=== PATIENT | female | born 1985 | race Caucasian/White ===

== ENCOUNTER 2016-08-13 12:47 | Emergency (ER) | payer OTHER ==
[2016-08-13 13:39] VITALS: BP 114/79
--- NOTE | 2016-08-13 14:26 | UC ---
UC Dental HPI - HPI Summary HPI Summary: HAD HAD A TOOTH FRACTURED AT GUM LINE X MONTHS NOW WITH FACIAL SWELLING NO PAIN NO FEVER - History of Current Complaint Chief Complaint: UCGeneralIllness Stated Complaint: FACIAL SWELLING/ORAL Time Seen by Provider: 08/13/16 14:16 Hx Obtained From: Patient Hx Last Menstrual Period: Pt has the IUD Onset/Duration: Gradual Onset, Lasting Days Severity: Moderate Pain Intensity: 0 Pain Scale Used: 0-10 Numeric - Allergies/Home Medications Allergies/Adverse Reactions: Allergies Allergy/AdvReac Type Severity Reaction Status Date / Time No Known Allergies Allergy Verified 04/28/16 13:15 Home Medications: Home Medications Alprazolam [Xanax] 0.5 mg PO BID PRN 08/13/16 [History Confirmed 08/13/16] Imipramine HCl [Tofranil] 75 mg PO DAILY 08/13/16 [History Confirmed 08/13/16] PMH/Surg Hx/FS Hx/Imm Hx Previously Healthy: Yes Endocrine History Of: Denies: Diabetes, Thyroid Disease Cardiovascular History Of: Denies: Cardiac Disorders, Hypertension Respiratory History Of: Reports: Bronchitis - MOST MARTINEZ, MILD CASE Denies: COPD, Asthma GI/ History Of: Denies: Ulcer - Surgical History Surgical History: Yes Surgery Procedure, Year, and Place: 2009 cholecystectomy. cervical dysplasia, had LEEP - Family History Known Family History: Positive: Hypertension, Other - sister has Positive FMH of UTI - Social History Alcohol Use: Rare Alcohol Amount: 1x week Substance Use Type: None Smoking Status (MU): Current Some Day Smoker Type: Cigarettes Amount Used/How Often: "Couple per day" Length of Time of Smoking/Using Tobacco: 1 YEAR Have You Smoked in the Last Year: No When Did the Patient Quit Smoking/Using Tobacco: 12/2013 - Immunization History Most Recent Influenza Vaccination: none Review of Systems Constitutional: Negative Skin: Negative Eyes: Negative ENT: Negative Respiratory: Negative Cardiovascular: Negative Gastrointestinal: Negative Genitourinary: Negative Motor: Negative Neurovascular: Negative Musculoskeletal: Negative Neurological: Negative Psychological: Negative All Other Systems Reviewed And Are Negative: Yes Physical Exam Triage Information Reviewed: Yes Appearance: Well-Appearing, No Pain Distress, Well-Nourished Vital Signs: Initial Vital Signs Temp 98 F 08/13/16 13:32 Pulse 112 08/13/16 13:32 Resp 16 08/13/16 13:32 BP 114/79 08/13/16 13:32 Pulse Ox 100 08/13/16 13:32 Eyes: Positive: Conjunctiva Clear ENT: Positive: Hearing grossly normal, Pharynx normal, TMs normal. Negative: Pharyngeal erythema, Nasal congestion, Nasal drainage, Tonsillar exudate, Trismus, Muffled/hoarse voice Dental: Positive: Gross Decay/Caries @, Dental Fracture @ Neck: Positive: Supple, Nontender Respiratory: Positive: Lungs clear, Normal breath sounds, No respiratory distress Cardiovascular: Positive: RRR, No Murmur Musculoskeletal: Positive: ROM Intact, No Edema Neurological: Positive: Alert, Muscle Tone Normal Psychological Exam: Normal Dental Complaint Course/Dx - Differential Dx/Diagnosis Provider Diagnoses: DENTAL INFECTION Discharge - Discharge Plan Condition: Stable Disposition: HOME Prescriptions: Ibuprofen TAB* [Motrin TAB*] 600 mg PO QID PRN #40 tab PRN Reason: Pain Penicillin VK TAB 500 MG(NF) [Penicillin VK 500 mg Tab(NF)] 500 mg PO QID #28 tab Patient Education Materials: Toothache (ED) Referrals: Ruslan Santana MD [Primary Care Provider] - Additional Instructions: RECHECK FOR NEW OR WORSENING SYMPTOMS SEE DENTIST IN 1-2 WEEKS PLANNED Images Head: 1 - SWOLLEN Dental: 1 - FX/GUM SWOLLEN
== END 2016-08-13 14:38 | disposition home or self-care (01) ==
LOC: UCCORT 12:47
DX: K04.7 Periapical abscess without sinus (principal); Z90.49 Acquired absence of other specified parts of digestive tract; Z72.0 Tobacco use
CPT/HCPCS: 99212; G0463

== ENCOUNTER 2017-02-07 09:23 | Emergency (ER) | payer OTHER ==
--- NOTE | 2017-02-07 09:25 | UC ---
Back Pain HPI - HPI Summary HPI Summary: 31 year old female presents with complains of neck and lower back pack after carrying a heavy load at work. - History of Current Complaint Stated Complaint: BACK AND NECK PAIN Time Seen by Provider: 02/07/17 09:24 Hx Obtained From: Patient Hx Last Menstrual Period: Pt has the IUD Onset/Duration: Sudden Onset Timing: Constant Severity Initially: Moderate Severity Currently: Moderate Pain Scale Used: 0-10 Numeric - 6 Character: Sharp Aggravating: Movement, Lifting, Bending Alleviating: Position - Allergies/Home Medications Allergies/Adverse Reactions: Allergies Allergy/AdvReac Type Severity Reaction Status Date / Time No Known Allergies Allergy Verified 02/07/17 09:30 Home Medications: Home Medications Anxiety Medication Starts With "B" 1 tab PO DAILY 02/07/17 [History Confirmed ] Ibuprofen TAB* [Motrin TAB* 800 MG] 800 mg PO Q8H PRN 02/07/17 [History Confirmed 02/07/17] PMH/Surg Hx/FS Hx/Imm Hx Previously Healthy: Yes - Surgical History Surgical History: Yes Surgery Procedure, Year, and Place: 2009 cholecystectomy. cervical dysplasia, had LEEP - Family History Known Family History: Positive: Hypertension, Other - sister has Positive FMH of UTI - Social History Alcohol Use: Rare Alcohol Amount: 1x week Substance Use Type: None Smoking Status (MU): Current Some Day Smoker Type: Cigarettes Amount Used/How Often: "Couple per day" Length of Time of Smoking/Using Tobacco: 1 YEAR Have You Smoked in the Last Year: No When Did the Patient Quit Smoking/Using Tobacco: 12/2013 - Immunization History Most Recent Influenza Vaccination: none Review of Systems Constitutional: Negative Skin: Negative Eyes: Negative ENT: Negative Respiratory: Negative Cardiovascular: Negative Gastrointestinal: Negative Genitourinary: Negative Motor: Negative Neurovascular: Negative Musculoskeletal: Other: - left lower back pain neck pain Neurological: Negative Psychological: Negative All Other Systems Reviewed And Are Negative: Yes Physical Exam Triage Information Reviewed: Yes Eye Exam: Normal ENT Exam: Normal Dental Exam: Normal Neck exam: Normal Neck: Positive: 1 Respiratory Exam: Normal Cardiovascular Exam: Normal Abdominal Exam: Normal Musculoskeletal: Positive: Other: - left lower back pain neck pain Neurological Exam: Normal Psychological Exam: Normal Skin Exam: Normal Back Pain Course/Dx - Differential Dx/Diagnosis Provider Diagnoses: left lower back pain. neck pain Discharge - Discharge Plan Condition: Stable Disposition: HOME Prescriptions: Meloxicam(NF) [Mobic(NF)] 7.5 mg PO BID #30 tab Methocarbamol TAB* [Robaxin 500 MG TAB*] 500 mg PO TID PRN #30 tab PRN Reason: Spasms - Back Patient Education Materials: Muscle Spasm (ED) Referrals: Ruslan Santana MD [Primary Care Provider] -
[2017-02-07 09:35] VITALS: BP 121/68
== END 2017-02-07 10:10 | disposition home or self-care (01) ==
LOC: UCCORT 09:23
DX: M54.5 Low back pain (principal); M54.2 Cervicalgia; Z97.5 Presence of (intrauterine) contraceptive device; Z87.891 Personal history of nicotine dependence
CPT/HCPCS: 99212; G0463

== ENCOUNTER 2018-01-26 15:44 | Emergency (ER) | payer OTHER ==
[2018-01-26 16:19] VITALS: BP 114/81
--- NOTE | 2018-01-26 16:51 | UC ---
Respiratory Complaint HPI - HPI Summary HPI Summary: 3 WEEKS OF INCREASING LEFT-SIDED SINUS PRESSURE AND PAIN. EARS FEEL FULL. HAS A GENERALIZED HEADACHE. YESTERDAY DEVELOPED RIGHT-SIDED DENTAL PAIN EXTENDING INTO HER FACE AND NECK. HAS ONLY A MILD COUGH. NO SORE THROAT OR FEVER. NO NAUSEA/VOMITING. STATES IBUPROFEN IS NOT HELPFUL. - History of Current Complaint Chief Complaint: UCGeneralIllness Stated Complaint: HEAD PRESSURE TOOTH PAIN Time Seen by Provider: 01/26/18 16:24 Hx Obtained From: Patient Hx Last Menstrual Period: 12/30/17 Onset/Duration: Gradual Onset, Lasting Weeks, Still Present Timing: Constant Severity Initially: Moderate Severity Currently: Moderate Pain Intensity: 7 Pain Scale Used: 0-10 Numeric Character: Cough: Nonproductive Aggravating Factors: Nothing Alleviating Factors: Nothing Associated Signs And Symptoms: Positive: Hoarseness, Sinus Discomfort. Negative : Dyspnea, Fever, Wheezing, URI - Allergies/Home Medications Allergies/Adverse Reactions: Allergies Allergy/AdvReac Type Severity Reaction Status Date / Time No Known Allergies Allergy Verified 01/26/18 16:19 PMH/Surg Hx/FS Hx/Imm Hx - Additional Past Medical History Additional PMH: DDD Psychological History: Anxiety - Surgical History Surgical History: Yes Surgery Procedure, Year, and Place: 2010 cholecystectomy. cervical dysplasia, had LEEP - Family History Known Family History: Positive: Hypertension, Other - sister has Positive FMH of UTI - Social History Alcohol Use: Rare Alcohol Amount: 1x week Substance Use Type: None Smoking Status (MU): Current Some Day Smoker Type: Cigarettes Amount Used/How Often: "Couple per day" Length of Time of Smoking/Using Tobacco: 1 YEAR Have You Smoked in the Last Year: No When Did the Patient Quit Smoking/Using Tobacco: 12/2013 - Immunization History Most Recent Influenza Vaccination: none Review of Systems Constitutional: Negative ENT: Dental Pain, Ear Ache, Sinus Congestion, Sinus Pain/Tenderness Respiratory: Cough Cardiovascular: Negative Gastrointestinal: Negative Neurological: Headache All Other Systems Reviewed And Are Negative: Yes Physical Exam Triage Information Reviewed: Yes Appearance: Well-Nourished, Pain Distress - MILD Vital Signs: Initial Vital Signs Temp 98.3 F 01/26/18 16:08 Pulse 96 01/26/18 16:08 Resp 16 01/26/18 16:08 BP 114/81 01/26/18 16:08 Pulse Ox 98 01/26/18 16:08 Vital Signs Reviewed: Yes Eyes: Positive: Conjunctiva Clear ENT: Positive: Hearing grossly normal, Pharynx normal, TMs normal Dental: Positive: Percussion Tenderness @ - RIGHT UPPER 2ND PREMOLAR, Gross Decay/Caries @ - RIGHT UPPER 2ND PREMOLAR Neck: Positive: Supple, Nontender, No Lymphadenopathy Respiratory Exam: Normal Cardiovascular Exam: Normal Abdomen Description: Positive: Soft Musculoskeletal: Positive: No Edema Neurological: Positive: Alert Psychological: Positive: Age Appropriate Behavior Skin: Negative: rashes UC Diagnostic Evaluation - Laboratory O2 Sat by Pulse Oximetry: 98 Respiratory Course/Dx - Differential Dx/Diagnosis Provider Diagnoses: 1. TOOTHACHE. 2. SINUSITIS Discharge - Sign-Out/Discharge Documenting (check all that apply): Patient Departure All imaging exams completed and their final reports reviewed: No Studies - Discharge Plan Condition: Stable Disposition: HOME Prescriptions: Amoxicillin/Clavulanate TAB* [Augmentin TAB 875*] 875 mg PO BID #20 tab Chlorhexidine MW 0.12% 473ML* [Peridex Mouth Wash 0.12%*] 15 ml SWISH SPIT BID # 1 bottle Meloxicam [Mobic] 7.5 mg PO BID PRN #30 tab PRN Reason: Pain Patient Education Materials: Sinusitis (ED), Toothache (ED) Referrals: Ruslan Santana MD [Primary Care Provider] - If Needed Additional Instructions: OUR SYMPTOMS MAY BE VIRALLY MEDIATED BUT GIVEN THE LENGTH OF TIME YOU HAVE BEEN ILL WE WILL COVER YOU WITH ANTIBIOTICS. IF YOU START THE MEDICINE BE SURE TO TAKE IT FOR THE FULL COURSE. REST, HYDRATE. SEEK FOLLOW-UP WITH YOUR PCP IF YOU ARE NOT IMPROVING OVER THE NEXT 1-2 WEEKS. CALL A DENTIST COURTNEY TO EVALUATE YOUR BAD TOOTH. USE THE MOUTH RINSE TWICE DAILY AND BE SURE TO RINSE WITH WATER EVERY TIME AFTER YOU EAT OR DRINK ANYTHING. [facility] WILL ALSO COVER FOR DENTAL INFECTION. MELOXICAM NEEDED FOR DISCOMFORT. - Billing Disposition and Condition Condition: STABLE Disposition: Home
== END 2018-01-26 16:51 | disposition home or self-care (01) ==
LOC: UCCORT 15:44
DX: K08.89 Other specified disorders of teeth and supporting structures (principal); J32.9 Chronic sinusitis, unspecified; F17.210 Nicotine dependence, cigarettes, uncomplicated
CPT/HCPCS: 99212; G0463

== ENCOUNTER 2018-04-27 14:30 | Emergency (ER) | payer OTHER ==
--- OUTSIDE RECORDS SUMMARY | 2018-04-27 14:57 | XMS REPORT ---
:1985 External Reference #:[id number] Author Organization [email or web address] Address [address] [place] [address] Phone [phone] Care Team Providers Name Role Phone Ruslan Santana MD Primary Care Physician Unavailable Payers Type Date Identification Numbers Payment Provider Subscriber Commercial Policy Number: [id number] Doug Newton Group Number: [id number] [facility] [address]98 PayID: [id number] [place] [address] Workers Compensation Onset: 2018 Policy Number: Vicky Newton [id number] Group Name: [id number] PayID: [id number] [place] [address] Problems Date Description Provider Status Onset: 04/08/2016 Degeneration of lumbar intervertebral Ben Griffin M.D. Active disc Onset: 05/18/2016 Low back pain Ben Griffin M.D. 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 times a day Ibuprofen 0 Active Tablets 600mg 1 by Unknown 000 mouth three times a day as needed Alprazolam 0 Active Tablets 0.5mg Alberto, 000 BRIAN Anand Venlafaxine Active Caps ER 75mg Alberto, HCL ER 000 24HR BRIAN Anand Tramadol HCL 0 Active Tablets 50mg 1-2 Unknown 000 tablets by mouth every 6 hours as needed pain Tramadol HCL Hx Tablets 50mg 20tabs 1 by [facility].5 Ben 018 - mouth Gaby, every 6 M.D. 018 hours as needed pain Gabapentin Hx Capsules 100mg 90caps 1 by [facility].[address] [place] [address] 016 - mouth Gaby, three M.D. 017 times a day Imipramine HCL Hx Tablets 50mg 3 Unknown 000 - tablets at hs. 017 Klonopin 0 Hx Tablets 0.5mg 1 by Unknown 000 - mouth twice a 017 day Buspirone HCL 0 Hx Tablets 15mg take one Unknown 000 - tablet by mouth 017 twice a day Amoxicillin/Cl 0 Hx Tablets 875-125mg 1 by Unknown avulanate 000 - mouth Potassium twice a 016 day Sertraline HCL 0 Hx Tablets 50mg Alberto 000 - BRIAN Anand 018 Vital Signs Date Vital Result Comment 03/30/2018 Height 65 inches 5'5" Heart Rate 88 /min BP Systolic Sitting 92 mmHg BP Diastolic Sitting 70 mmHg Body Temperature 98.2 F 03/14/2018 Height 65 inches 5'5" Weight 155.00 lb BP Systolic 122 mmHg BP Diastolic 70 mmHg Pain Level 7 BMI (Body Mass Index) 25.8 kg/m2 10/26/2016 Height 65 inches 5'5" Weight 142.00 lb Heart Rate 72 /min BP Systolic Sitting 126 mmHg BP Diastolic Sitting 80 mmHg Pain Level 8 BMI (Body Mass Index) 23.6 kg/m2 05/18/2016 Height 65 inches 5'5" Weight 142.00 lb Heart Rate 70 /min BP Systolic Sitting 126 mmHg BP Diastolic Sitting 80 mmHg Pain Level 4 BMI (Body Mass Index) 23.6 kg/m2 05/04/2016 Height 65 inches 5'5" Weight 142.00 lb Heart Rate 76 /min BP Systolic Sitting 102 mmHg BP Diastolic Sitting 78 mmHg Pain Level 4 BMI (Body Mass Index) 23.6 kg/m2 04/08/2016 Height 65 inches 5'5" Weight 142.00 lb Heart Rate 66 /min BP Systolic 110 mmHg BP Diastolic 78 mmHg Pain Level 3 BMI (Body Mass Index) 23.6 kg/m2 Results Description No Information Procedures Description No Information Encounters Type Date Location Provider CPT E/M Dx Office Visit 03/14/2018 [facility] Ben Griffin M.D. [id number] M54.5 11:20a [facility] Office Visit 10/26/2016 [facility] Diana Vitale PA-C 72709 M46.1 1:30p [facility] Office Visit 05/18/2016 [facility] Ben Griffin M.D. 02395 M54.5 10:45a [facility] Office Visit 05/04/2016 [facility] Ben Griffin M.D. 10725 M51.26 9:30a [facility] Office Visit 04/08/2016 [facility] Ben Griffin M.D. [id number] M51.37 3:00p [facility] Plan of Care Future Appointment(s):05/11/2018 3:40 pm - Ben Griffin M.D. at [facility]03/30/2018 - Ben Griffin M.D.M51.36 Other intervertebral disc degeneration, lumbar regionNew Medication:Gabapentin 300 mgNew Therapy:Physical TherapyFollow up:6 weeks
[2018-04-27 15:11] VITALS: BP 116/72
--- NOTE | 2018-04-27 15:22 | UC ---
UC General HPI - HPI Summary HPI Summary: pt states hx of bad back for bout 3 years. over the past 2-3 days pt has been having more pain in her R low back and back spasm in general. her pcp is txing with diazepam and oxycodone which is not helping. pt had seen neurology whom prescribed a "nerve pill" which she no longer takes due to "severe side effects". had a recent mri 03/24/18. no acute injury since last mri. occasional tingling to hands and feel. no fever, abdominal pain, saddle anesthesia or bowel/bladder dysfunction. - History of Current Complaint Chief Complaint: UCBackPain Stated Complaint: LOWER BACK PAIN Time Seen by Provider: 04/27/18 15:00 Hx Obtained From: Patient Hx Last Menstrual Period: 04/24/18 Pain Intensity: 9 Aggravating: movement Alleviating: nothing Associated Signs & Symptoms: Positive: Back Pain. Negative: Abdominal Pain, Fever, Weakness - Allergy/Home Medications Allergies/Adverse Reactions: Allergies Allergy/AdvReac Type Severity Reaction Status Date / Time No Known Allergies Allergy Verified 04/27/18 14:59 Home Medications: Home Medications Diazepam TAB(*) [Valium TAB(*)] 5 mg PO BEDTIME PRN 04/27/18 [History Confirmed 04/27/18] Ibuprofen TAB* [Motrin TAB* 800 MG] 800 mg PO Q6H PRN 04/27/18 [History Confirmed 04/27/18] oxyCODONE/Acetamin 5/325 MG* [Percocet 5/325 TAB*] 1 tab PO Q6H PRN 04/27/18 [ History Confirmed 04/27/18] PMH/Surg Hx/FS Hx/Imm Hx - Additional Past Medical History Additional PMH: chronic back pain - Surgical History Surgical History: Yes Surgery Procedure, Year, and Place: 2009 cholecystectomy. cervical dysplasia, had LEEP - Family History Known Family History: Positive: Hypertension, Other - sister has Positive FMH of UTI - Social History Occupation: Employed Full-time Lives: With Family Alcohol Use: Occasionally Alcohol Amount: 1x week Substance Use Type: None Smoking Status (MU): Light Every Day Tobacco Smoker Type: Cigarettes Amount Used/How Often: "Couple per day" Length of Time of Smoking/Using Tobacco: 1 YEAR Have You Smoked in the Last Year: No When Did the Patient Quit Smoking/Using Tobacco: 12/2013 - Immunization History Most Recent Influenza Vaccination: none Vaccination Up to Date: Yes Review of Systems All Other Systems Reviewed And Are Negative: Yes Constitutional: Positive: Negative Skin: Positive: Negative Eyes: Positive: Negative ENT: Positive: Negative Respiratory: Positive: Negative Cardiovascular: Positive: Negative Gastrointestinal: Positive: Negative Genitourinary: Positive: Negative Motor: Positive: Negative Neurovascular: Positive: Negative Musculoskeletal: Positive: Other: - back pain Neurological: Positive: Negative Psychological: Positive: Negative Is Patient Immunocompromised?: No Physical Exam Triage Information Reviewed: Yes Appearance: Pain Distress Vital Signs: Initial Vital Signs Temp 98.4 F 04/27/18 15:03 Pulse 102 04/27/18 15:03 Resp 20 04/27/18 15:03 BP 116/72 04/27/18 15:03 Pulse Ox 100 04/27/18 15:03 Vital Signs Reviewed: Yes Eyes: Positive: Conjunctiva Clear ENT: Positive: Normal ENT inspection Neck: Positive: Supple, Nontender, No Lymphadenopathy Respiratory: Positive: Lungs clear, Normal breath sounds Cardiovascular: Positive: RRR, No Murmur Abdomen Description: Positive: Nontender, No Organomegaly, Soft. Negative: Distended, Guarding, Pulsatile Mass Bowel Sounds: Positive: Present Musculoskeletal: Positive: Other: - Back: flat in lodosis of lumbar spine. cervical, thoracic and lumbar spin is non tender to palpation. Tender over R paraspinal mm in lumbar region. Very limited rom lumbar region due to spasm. no saddle aneshtesia. 5/5 strength, 2+ reflexes and sensation intact x4. Slow but steady gait. Neurological: Positive: Alert Psychological: Positive: Age Appropriate Behavior Skin Exam: Normal Skin: Negative: Rashes Re-Evaluation - Re-Evaluation First Eval Re-Evaluation Time: 16:06 Change: Improved - pt notes a little less pain/spasm. she was able to stand and get on exam table to lay flat for comfort. this is am improvement in her rom. pt's is on his way from [place] at time of my initial exam to drive pt home. Course/Dx - Course Course Of Treatment: no concern for fx, acute abdomen, infection of cauda equina. - Differential Dx - Multi-Symptom Provider Diagnoses: Acute flare of chronic back pain Discharge - Sign-Out/Discharge Documenting (check all that apply): Patient Departure All imaging exams completed and their final reports reviewed: No Studies - Discharge Plan Condition: Stable Disposition: HOME Prescriptions: methylPREDNISolone [Medrol Dosepak 4 MG*] 0 mg PO .SEE IWONA INSTRUCTION #1 tab Patient Education Materials: Back Pain (ED) Forms: *Work Release Referrals: Ruslan Santana MD [Primary Care Provider] - 5 Days Additional Instructions: FOLLOW UP THIS WEDNESDAY SCHEDULED - Billing Disposition and Condition Condition: STABLE Disposition: Home
[2018-04-27] MEDS ORDERED: Ketorolac INJ* 60 MG/2 ML VIAL IM ONE (15:23)
[2018-04-27] MEDS ORDERED: Cyclobenzaprine TAB* 10 MG PO ONE (15:24)
[2018-04-27] MEDS ORDERED: Dexamethasone IV* 4 MG/ML 1 ML (4 MG) PO ONE (15:24)
== END 2018-04-27 16:30 | disposition home or self-care (01) ==
LOC: UCCORT 14:30
DX: M54.5 Low back pain (principal); G89.29 Other chronic pain; R20.2 Paresthesia of skin; F17.210 Nicotine dependence, cigarettes, uncomplicated
CPT/HCPCS: 96372; 99212; A9270-GY; G0463; J1100; J1885

== ENCOUNTER 2018-10-12 15:26 | Emergency (ER) | payer OTHER ==
[2018-10-12 16:17] VITALS: BP 115/71
--- NOTE | 2018-10-12 16:39 | UC ---
Throat Pain/Nasal Jose HPI - HPI Summary HPI Summary: 33-year-old woman comes in with a chief complaint of sore throat fevers upper respiratory tract infection symptoms for 4 days. Patient reports that her daughter's diagnosis strep throat this morning. No complaint of any wheezing. She has been taking acetaminophen which has been helping with her symptoms. Throat pain is worse when she tries to swallow. - History of Current Complaint Chief Complaint: UCGeneralIllness Stated Complaint: FEVER, SORE THROAT, HEADACHE Time Seen by Provider: 10/12/18 16:26 Hx Last Menstrual Period: 10/10/18 Pain Intensity: 6 - Allergies/Home Medications Allergies/Adverse Reactions: Allergies Allergy/AdvReac Type Severity Reaction Status Date / Time No Known Allergies Allergy Verified 10/12/18 16:18 Home Medications: Home Medications ALPRAZolam [Alprazolam] 0.25 mg PO DAILY 10/12/18 [History Confirmed 10/12/18] Diclofenac Sodium 75 mg PO DAILY 10/12/18 [History Confirmed 10/12/18] PMH/Surg Hx/FS Hx/Imm Hx Previously Healthy: Yes - Surgical History Surgical History: Yes Surgery Procedure, Year, and Place: 2009 cholecystectomy. cervical dysplasia, had LEEP - Family History Known Family History: Positive: Hypertension, Other - sister has Positive FMH of UTI - Social History Alcohol Use: Occasionally Alcohol Amount: 1x week Substance Use Type: None Smoking Status (MU): Light Every Day Tobacco Smoker Type: Cigarettes Amount Used/How Often: "Couple per day" Length of Time of Smoking/Using Tobacco: 1 YEAR Have You Smoked in the Last Year: No When Did the Patient Quit Smoking/Using Tobacco: 12/2013 - Immunization History Most Recent Influenza Vaccination: none Vaccination Up to Date: Yes Review of Systems All Other Systems Reviewed And Are Negative: Yes Constitutional: Positive: Fever, Chills Skin: Positive: Negative Eyes: Positive: Negative ENT: Positive: Sore Throat, Nasal Discharge, Sinus Congestion Respiratory: Positive: Negative Cardiovascular: Positive: Negative Gastrointestinal: Positive: Negative Motor: Positive: Negative Neurovascular: Positive: Negative Musculoskeletal: Positive: Negative Neurological: Positive: Negative Psychological: Positive: Negative Is Patient Immunocompromised?: No Physical Exam Triage Information Reviewed: Yes Appearance: No Pain Distress, Well-Nourished, Ill-Appearing - mild Vital Signs: Initial Vital Signs Temp 98.2 F 10/12/18 16:12 Pulse 100 10/12/18 16:12 Resp 16 10/12/18 16:12 BP 115/71 10/12/18 16:12 Pulse Ox 100 10/12/18 16:12 Vital Signs Reviewed: Yes Eye Exam: Normal Eyes: Positive: Conjunctiva Clear ENT: Positive: Pharyngeal erythema, Nasal congestion, Nasal drainage, TMs normal Neck: Positive: Supple Respiratory: Positive: Lungs clear, Normal breath sounds, No respiratory distress Cardiovascular: Positive: RRR Musculoskeletal Exam: Normal Musculoskeletal: Positive: Strength Intact, ROM Intact Neurological Exam: Normal Neurological: Positive: Alert, Muscle Tone Normal Psychological Exam: Normal Psychological: Positive: Normal Response To Family, Age Appropriate Behavior Skin Exam: Normal Throat Pain/Nasal Course/Dx - Course Course Of Treatment: DISCUSSED VIRAL VERSES BACTERIAL INFECTION AND THE ROLE OF ANTIBIOTICS. THE PATIENT PREFERS TO BE ON ANTIBIOTICS AT THIS TIME. - Differential Dx/Diagnosis Provider Diagnosis: Pharyngitis Discharge - Sign-Out/Discharge Documenting (check all that apply): Patient Departure All imaging exams completed and their final reports reviewed: No Studies - Discharge Plan Condition: Stable Disposition: HOME Prescriptions: Amoxicillin PO (*) [Amoxicillin 875 MG (*)] 875 mg PO BID #20 tab Patient Education Materials: Pharyngitis (ED) Referrals: Ruslan Santana MD [Primary Care Provider] - Additional Instructions: FOLLOW UP WITH YOUR DOCTOR IF NOT COMPLETELY IMPROVED. GET RECHECKED SOONER IF YOUR CONDITION WORSENS OR ANY QUESTIONS OR CONCERNS. - Billing Disposition and Condition Condition: STABLE Disposition: Home
== END 2018-10-12 16:48 | disposition home or self-care (01) ==
LOC: UCCORT 15:26
DX: J02.9 Acute pharyngitis, unspecified (principal); F17.210 Nicotine dependence, cigarettes, uncomplicated
CPT/HCPCS: 87651; 99212; G0463

== ENCOUNTER 2018-11-03 16:28 | Emergency (ER) | payer OTHER ==
[2018-11-03 17:04] VITALS: BP 109/83
--- NOTE | 2018-11-03 17:20 | UC ---
Dental HPI - HPI Summary HPI Summary: 33 y/o female presents to the urgent care c/o Ate a bagel at work yesterday for lunch, tooth started bothering her at 2 pm. Ibuprofen at 3 pm and tylenol at 11 am today. Pain now is 7. The filling in that tooth fell out a while ago. While eating dinner yesterday she tasted something nasty, like the tooth was infected and draining. Ear ache started this morning. She does not have a dentist and could not see PCP until the 4th - History of Current Complaint Chief Complaint: UCDentalProblem Stated Complaint: DENTAL/EAR PAIN Time Seen by Provider: 11/03/18 17:19 Hx Obtained From: Patient Hx Last Menstrual Period: 10/10/18 Pain Intensity: 7 - Allergies/Home Medications Allergies/Adverse Reactions: Allergies Allergy/AdvReac Type Severity Reaction Status Date / Time No Known Allergies Allergy Verified 11/03/18 17:04 PMH/Surg Hx/FS Hx/Imm Hx - Surgical History Surgical History: Yes Surgery Procedure, Year, and Place: 2009 cholecystectomy. cervical dysplasia, had LEEP - Family History Known Family History: Positive: Hypertension, Other - sister has Positive FMH of UTI - Social History Alcohol Use: Occasionally Alcohol Amount: 1x week Substance Use Type: None Smoking Status (MU): Light Every Day Tobacco Smoker Type: Cigarettes Amount Used/How Often: "Couple per day" Length of Time of Smoking/Using Tobacco: 1 YEAR Have You Smoked in the Last Year: No When Did the Patient Quit Smoking/Using Tobacco: 12/2013 - Immunization History Most Recent Influenza Vaccination: none Vaccination Up to Date: Yes Physical Exam - Summary Physical Exam Summary: Vital Signs Reviewed: Yes General: Well-Appearing, Well-Nourished female sitting in the examining table w /o any respiratory or pain distress Eyes: Positive: Conjunctiva Clear - PERRLA, EOMI, ENT: Positive: Normal ENT inspection, Hearing grossly normal, Pharynx normal, TMs normal - B/L external ear canals clear,. Negative: Tonsillar swelling, Tonsillar exudate, Trismus Dental: Positive: Gross Decay/Caries on molars #2 and 3 w/ gingival swelling and erythema, tender to percussion. Molar #3 is fractured, involves tissue surrounding theses molars, w/ positive anterior Cervical Lymphadenopathy. Neck: Positive: Supple Respiratory: Positive: Chest non-tender, Lungs clear, Normal breath sounds, No respiratory distress Cardiovascular: Positive: RRR, No Murmur, Pulses Normal, Brisk Capillary Refill Abdomen Description: Positive: Nontender, No Organomegaly, Soft. Negative: CVA Tenderness (R), CVA Tenderness (L) Bowel Sounds: Positive: Present Musculoskeletal: Positive: Strength Intact, ROM Intact, No Edema Neurological Exam: Normal Psychological Exam: Normal Skin Exam: Normal Triage Information Reviewed: Yes Vital Signs: Initial Vital Signs Temp 98.8 F 11/03/18 16:57 Pulse 87 11/03/18 16:57 Resp 18 11/03/18 16:57 BP 109/83 11/03/18 16:57 Pulse Ox 97 11/03/18 16:57 Dental Complaint Course/Dx - Course Course Of Treatment: Pt with dental abscess around molar #17 w/ cross decay on examination. Pt given Ibuprofen PO and viscous Lidocaine at the clinic to alleviate symptoms by the nurse. Pt Rx Clindamycin PO and Ibuprofen PO fas directed below. Pt strongly advised to f/u with Dentist as soon as possible further evaluation and treatment. D/C instructions explained. Mother and Pt understood and agreed with plan of care. - Differential Dx/Diagnosis Differential Diagnosis/Dx: Dental Abscess, Dental Caries, Fractured Tooth Provider Diagnosis: Dental abscess, Fracture, tooth Discharge - Sign-Out/Discharge Documenting (check all that apply): Patient Departure - D/C home All imaging exams completed and their final reports reviewed: No Studies - Discharge Plan Condition: Stable Disposition: HOME Prescriptions: Clindamycin Cap(NF) [Clindamycin Cap 300 mg Cap(NF)] 300 mg PO TID #30 cap Lidocaine 2% VISCOUS* [Xylocaine 2% Viscous*] 15 ml SWISH SPIT Q6H PRN #1 btl PRN Reason: dental pain Patient Education Materials: Dental Abscess (ED) Referrals: Ruslan Santana MD [Primary Care Provider] - 2 Days Additional Instructions: 1-Please take full course of antibiotic to avoid resistance. Take yogurt w/ probiotics or Culturelle to protect your GI system 2- Continue taken Ibuprofen PO and alternate w/ tylenol PO after meals to alleviate pain and swelling. 3- F/u with your Dentist or Dental List provided as soon as possible for further treatment. 4- If symptoms do not improve or worsen please r f/u with your PCP in 2-3 days for further evaluation and treatment - Billing Disposition and Condition Condition: STABLE Disposition: Home
[2018-11-03] MEDS ORDERED: Lidocaine 2% VISCOUS* 15 ML UDC SWISH SPIT ONE (17:29)
[2018-11-03] MEDS ORDERED: Acetaminophen TAB* 325 MG PO ONE (17:29)
== END 2018-11-03 18:04 | disposition home or self-care (01) ==
LOC: UCCORT 16:28
DX: S02.5XXA Fracture of tooth (traumatic), initial encounter for closed fracture (principal); K04.7 Periapical abscess without sinus; F17.210 Nicotine dependence, cigarettes, uncomplicated; X58.XXXA Exposure to other specified factors, initial encounter; Y92.9 Unspecified place or not applicable
CPT/HCPCS: 99212; A9270-GY; G0463

== ENCOUNTER 2019-02-05 10:04 | Emergency (ER) | payer OTHER ==
[2019-02-05 10:23] VITALS: BP 109/81
--- NOTE | 2019-02-05 10:53 | UC ---
Complaint Female HPI - HPI Summary HPI Summary: Pt presents with c/o sudden onset of urinary frequency, urgency, and dysuria X 2 days. Pt also c/o of creamy, foul odor vaginal discharge. Pt states that she is due for her menstrual cycle " any day now". Pt states that ~ 3days ago she was having sexual intercourse and noted that she "bled" after intercourse, did not require a pad or tampon, bleeding has since resolved. Denies risk of STI 's has hx of BV and recurrent vaginal yeast infection - History Of Current Complaint Stated Complaint: UTI SYMPTOMS Time Seen by Provider: 02/05/19 10:15 Hx Obtained From: Patient Hx Last Menstrual Period: 01/03/19 ?: No Onset/Duration: Sudden Onset, Lasting Days, Still Present Timing: Constant Severity Initially: Mild Severity Currently: Mild Pain Intensity: 3 Character: Dull, Burning, Colicy Aggravating Factor(s): [place], Urination Alleviating Factor(s): Nothing Associated Signs And Symptoms: Positive: Back Pain, Vaginal Bleeding/Discharge, Vaginal Discharge Related Hx: Similar Episode/Dx as: - UTI and BV - Risk Factors Ectopic Risk Factor: Maternal Age ^ 30 Ovarian Torsion Risk Factor: Reproductive Age - Allergies/Home Medications Allergies/Adverse Reactions: Allergies Allergy/AdvReac Type Severity Reaction Status Date / Time No Known Allergies Allergy Verified 02/05/19 10:18 Home Medications: Home Medications Diclofenac Sodium EC TAB* [Voltaren EC TAB*] 25 mg PO TID PRN 02/05/19 [History Confirmed 02/05/19] Metaxalone TAB* [Skelaxin TAB*] 800 mg PO TID PRN 02/05/19 [History Confirmed ] PMH/Surg Hx/FS Hx/Imm Hx Previously Healthy: Yes - Surgical History Surgical History: Yes Surgery Procedure, Year, and Place: 2009 cholecystectomy. cervical dysplasia, had LEEP - Family History Known Family History: Positive: Hypertension, Other - sister has Positive FMH of UTI - Social History Occupation: Employed Full-time Lives: With Family Alcohol Use: Weekly Alcohol Amount: 1x week Substance Use Type: None Smoking Status (MU): Current Some Day Smoker Type: Cigarettes Amount Used/How Often: <1/4 PPD Length of Time of Smoking/Using Tobacco: Since Age 27 Have You Smoked in the Last Year: No When Did the Patient Quit Smoking/Using Tobacco: 12/2013 - Immunization History Most Recent Influenza Vaccination: none Vaccination Up to Date: Yes Review of Systems All Other Systems Reviewed And Are Negative: Yes Constitutional: Positive: Negative Skin: Positive: Negative Eyes: Positive: Negative ENT: Positive: Negative Respiratory: Positive: Negative Cardiovascular: Positive: Negative Gastrointestinal: Positive: Negative Genitourinary: Positive: Dysuria, Frequency, Urgency, Vaginal/Penile Burning, Vaginal/Penile Itching, Vaginal/Penile Discharge, Vaginal/Penile Pain, Abnormal Bleeding - resolved Motor: Positive: Negative Neurovascular: Positive: Negative Musculoskeletal: Positive: Negative Neurological: Positive: Negative Psychological: Positive: Negative Is Patient Immunocompromised?: No Physical Exam Triage Information Reviewed: Yes Appearance: Well-Appearing Vital Signs: Initial Vital Signs Temp 98.5 F 02/05/19 10:11 Pulse 112 02/05/19 10:11 Resp 18 02/05/19 10:11 BP 109/81 02/05/19 10:11 Pulse Ox 99 02/05/19 10:11 Vital Signs Reviewed: Yes Eye Exam: Normal ENT Exam: Normal Dental Exam: Normal Neck exam: Normal Respiratory Exam: Normal Cardiovascular Exam: Normal Abdominal Exam: Normal Abdomen Description: Positive: Nontender Musculoskeletal Exam: Normal Neurological Exam: Normal Psychological Exam: Normal Skin Exam: Normal Complaint Female Dx - Differential Dx/Diagnosis Differential Diagnosis/HQI/PQRI: Pelvic Inflammatory Disease, Sexually Transmitted Disease, Urinary Tract Infection Provider Diagnosis: UTI (urinary tract infection), Vaginitis Discharge ED - Sign-Out/Discharge Documenting (check all that apply): Patient Departure All imaging exams completed and their final reports reviewed: No Studies - Discharge Plan Condition: Stable Disposition: HOME Prescriptions: metroNIDAZOLE VAGINAL 0.75%* 1 applic VAGINAL BEDTIME #5 tube Nitrofurantoin Monohyd/M-Cryst [Macrobid 100 mg Capsule] 100 mg PO Q12H #10 cap Phenazopyridine TAB* [Pyridium 100 mg TAB*] 100 mg PO Q8H #3 tab Patient Education Materials: Urinary Tract Infection in Women (ED), Vaginitis ( ED) Referrals: Ruslan Santana MD [Primary Care Provider] - If Needed Additional Instructions: Please follow up with your PCP and [facility] provider as soon as possible. - Billing Disposition and Condition Condition: STABLE Disposition: Home
== END 2019-02-05 11:05 | disposition home or self-care (01) ==
LOC: UCCORT 10:04
DX: N39.0 Urinary tract infection, site not specified (principal); N76.0 Acute vaginitis; F17.210 Nicotine dependence, cigarettes, uncomplicated
CPT/HCPCS: 81003; 84702; 87077; 87086; 87186; 87480; 87510; 87660; 99212; G0463

== ENCOUNTER 2019-02-18 13:12 | Emergency (ER) | payer OTHER ==
[2019-02-18 14:44] VITALS: BP 119/86
--- NOTE | 2019-02-18 15:16 | UC ---
Throat Pain/Nasal Jose HPI - HPI Summary HPI Summary: 4 days of right ear pain, st, chills and subjective fever---white spots on tonsils - History of Current Complaint Chief Complaint: UCEar Stated Complaint: ST,FEVER Time Seen by Provider: 02/18/19 15:05 Hx Obtained From: Patient Hx Last Menstrual Period: last week ?: No Onset/Duration: Sudden Onset, Lasting Days - 4, Worse Since - past 11-2 days Pain Intensity: 5 Pain Scale Used: 0-10 Numeric Cough: None Associated Signs & Symptoms: Positive: Fever - subjective - Allergies/Home Medications Allergies/Adverse Reactions: Allergies Allergy/AdvReac Type Severity Reaction Status Date / Time No Known Allergies Allergy Verified 02/18/19 14:45 Home Medications: Home Medications Acetaminophen TAB* [Tylenol TAB*] 650 mg PO BID PRN 02/18/19 [History Confirmed 02/18/19] PMH/Surg Hx/FS Hx/Imm Hx Previously Healthy: No - chronic pain Psychological History: Anxiety, Depression - Surgical History Surgical History: Yes Surgery Procedure, Year, and Place: 2009 cholecystectomy. cervical dysplasia, had LEEP - Family History Known Family History: Positive: Hypertension, Other - sister has Positive FMH of UTI - Social History Occupation: Employed Full-time Lives: With Family Alcohol Use: Weekly Alcohol Amount: 1x week Substance Use Type: None Smoking Status (MU): Current Every Day Smoker Type: Cigarettes Amount Used/How Often: <1/4 PPD Length of Time of Smoking/Using Tobacco: Since Age 27 Have You Smoked in the Last Year: No When Did the Patient Quit Smoking/Using Tobacco: 12/2013 - Immunization History Most Recent Influenza Vaccination: none Vaccination Up to Date: Yes Review of Systems All Other Systems Reviewed And Are Negative: Yes Constitutional: Positive: Fever - subjective, Chills Skin: Positive: Negative Eyes: Positive: Negative ENT: Positive: Sore Throat, Ear Ache - right Respiratory: Positive: Negative Cardiovascular: Positive: Negative Gastrointestinal: Positive: Negative Genitourinary: Positive: Negative Motor: Positive: Negative Neurovascular: Positive: Negative Musculoskeletal: Positive: Myalgia Neurological: Positive: Headache Psychological: Positive: Negative Is Patient Immunocompromised?: No Physical Exam Triage Information Reviewed: Yes Appearance: Well-Nourished, Ill-Appearing - mild, Pain Distress - mild Vital Signs: Initial Vital Signs Temp 98 F 02/18/19 14:36 Pulse 95 02/18/19 14:36 Resp 20 02/18/19 14:36 BP 119/86 02/18/19 14:36 Pulse Ox 98 02/18/19 14:36 Vital Signs Reviewed: Yes Eye Exam: Normal Eyes: Positive: Conjunctiva Clear ENT Exam: Normal ENT: Positive: Normal ENT inspection, Hearing grossly normal, TMs normal, Tonsillar swelling, Tonsillar exudate, Uvula midline. Negative: Nasal congestion, Nasal drainage, Trismus, Muffled voice, Hoarse voice, Dental tenderness, Sinus tenderness Dental Exam: Normal Neck exam: Normal Neck: Positive: Supple, Nontender, Enlarged Nodes @ - anterior cervical Respiratory Exam: Normal Respiratory: Positive: Chest non-tender, Lungs clear, Normal breath sounds, No respiratory distress, No accessory muscle use Cardiovascular Exam: Normal Cardiovascular: Positive: RRR, No Murmur, Pulses Normal, Brisk Capillary Refill Musculoskeletal Exam: Normal Musculoskeletal: Positive: Strength Intact, ROM Intact, No Edema Neurological Exam: Normal Neurological: Positive: Alert, Muscle Tone Normal Psychological Exam: Normal Skin Exam: Normal Diagnostics - Laboratory Lab Results: rst (-) Throat Pain/Nasal Course/Dx - Course Course Of Treatment: rest increase fluids, tylenol-ibuprofen for pain and chills follow with pcp prn - Differential Dx/Diagnosis Provider Diagnosis: Acute viral pharyngitis Discharge ED - Sign-Out/Discharge Documenting (check all that apply): Patient Departure All imaging exams completed and their final reports reviewed: No Studies - Discharge Plan Condition: Stable Disposition: HOME Patient Education Materials: Pharyngitis (ED), Viral Syndrome (ED) Forms: *Work Release Referrals: Ruslan Santana MD [Primary Care Provider] - If Needed - Billing Disposition and Condition Condition: STABLE Disposition: Home - Attestation Statements Provider Attestation: Per institutional requirements, I have reviewed the chart, however, I was not consulted specifically or made aware of this patient by the midlevel provider. I did not personally evaluate, interact with , or disposition this patient.
== END 2019-02-18 15:33 | disposition home or self-care (01) ==
LOC: UCCORT 13:12
DX: J02.8 Acute pharyngitis due to other specified organisms (principal); R50.9 Fever, unspecified; G89.29 Other chronic pain; F17.210 Nicotine dependence, cigarettes, uncomplicated
CPT/HCPCS: 87651; 99211; G0463